=== PATIENT | female | born 1990 | race African-American/Black ===

== ENCOUNTER 2019-01-08 18:29 | Inpatient (IN) | payer MEDICAID, OTHER ==
[~2019-01-08] VITALS: Ht 157.5 cm; Wt 59.0 kg
[2019-01-08] MEDS ORDERED: SODIUM CHLORIDE 0.9% 1,000 ML IV ONE ×2 (22:13→22:56)
[2019-01-08] MEDS ORDERED: ACETAMINOPHEN 325MG TABLET PO PRN (22:15)
[2019-01-08] MEDS ORDERED: ONDANSETRON HCL 4MG/2ML INJ IV ONE ×2 (22:15→23:15)
[2019-01-08 22:34] LABS: BASOPHILS % 0.3 % (0.0-2.0); EOSINOPHILS % 0.1 % (0.0-5.0); HEMATOCRIT. 41.2 % (36.0-48.0); HEMOGLOBIN. 13.4 g/dL (12.0-16.0); MEAN CORPUSCULAR HEMOGLOBIN 24.7 pg (28.0-32.0); MEAN CORPUSCULAR VOLUME 75.8 fL (81.0-99.0); MEAN PLATELET VOLUME 8.3 fl (7.4-10.4); MONOCYTES % 7.9 % (2.0-8.0); NEUTROPHILS % 61.7 % (40.0-76.0); PLATELET 391 x1000/uL (130-400); RED BLOOD CELL COUNT 5.43 mill/uL (4.2-5.4); RED CELL DISTRIBUTION WIDTH 15.6 % (11.6-14.6)
[2019-01-08 22:35] LABS: CHLORIDE 103 mEq/L (98-107)
[2019-01-08 22:59] LABS: B-HCG QUANTITATIVE 119562 mIU/mL (<3)
[2019-01-08] MEDS ORDERED: POTASSIUM CHLORIDE 20MEQ TABLET SR PO ONE (23:00)
[2019-01-09 00:15] LABS: CLARITY URINE CLOUDY (CLEAR); COLOR URINE YELLOW (YELLOW); KETONES URINE 4+ (NEGATIVE); LEUKOCYTE ESTERASE URINE NEGATIVE (NEGATIVE); NITRITE URINE NEGATIVE (NEGATIVE); OCCULT BLOOD URINE NEGATIVE (NEGATIVE); PH URINE 5.5 (4.5-8.0); PROTEIN URINE 1+ (NEGATIVE); SPECIFIC GRAVITY URINE 1.038 (1.005-1.030)
[2019-01-09] MEDS ORDERED: ONDANSETRON HCL 4MG/2ML INJ IV ONE (00:30)
[2019-01-09] MEDS ORDERED: SODIUM CHLORIDE 0.9% 1,000 ML IV ONE (01:09)
[2019-01-09] MEDS ORDERED: KCL 10MEQ/50ML PREMIX 50 ML IV ONE (01:15)
[2019-01-09 02:58] VITALS: BP 114/79
[2019-01-09 04:00] VITALS: BP 114/79
[2019-01-09 08:00] VITALS: BP 110/70
[2019-01-09] MEDS ORDERED: FOLIC ACID 1 MG, THIAMINE HCL 100 MG, MVI, ADULT NO.1 10 ML in DEXTROSE 5% WATER 1,000 ML IV ONE ×4 (10:00)
[2019-01-09 12:00] VITALS: BP 99/56
[2019-01-09] MEDS: ONDANSETRON HCL 4MG/2ML INJ IV PRN (15:47)
[2019-01-09 16:00] VITALS: BP 94/63
[2019-01-09] MEDS ORDERED: LACTATED RINGERS 1,000 ML IV SCH (18:00)
[2019-01-09 19:10] LABS: HEPATITIS B SURFACE ANTIGEN NEGATIVE
[2019-01-09 20:00] VITALS: BP 112/76
[2019-01-09] MEDS: LACTATED RINGERS 1,000 ML IV SCH (22:42)
[2019-01-10] VITALS: BP 102/69
[2019-01-10 04:00] VITALS: BP 100/72
[2019-01-10] MEDS: ONDANSETRON HCL 4MG/2ML INJ IV PRN (06:09)
[2019-01-10 06:35] LABS: CHLORIDE 108 mEq/L (98-107)
[2019-01-10 08:00] VITALS: BP 121/71
[2019-01-10 08:49] LABS: *AMPHETAMINES SCREEN URINE NEGATIVE (NEGATIVE); OPIATES URINE SCREEN NEGATIVE (NEGATIVE); PHENCYCLIDINE URINE SCREEN NEGATIVE (NEGATIVE)
[2019-01-10 08:50] LABS: *BARBITURATES SCREEN URINE NEGATIVE (NEGATIVE); *BENZODIAZEPINES SCREEN URINE NEGATIVE (NEGATIVE); *COCAINE SCREEN URINE NEGATIVE (NEGATIVE); METHADONE URINE SCREEN NEGATIVE (NEGATIVE)
[2019-01-10 08:57] LABS: CANNABINOID URINE SCREEN PRESUMTIVE POSITIVE (NEGATIVE)
[2019-01-10] MEDS: LACTATED RINGERS 1,000 ML IV SCH ×2 (09:04→21:01)
[2019-01-10 16:06] VITALS: BP 112/66
[2019-01-10 20:00] VITALS: BP 112/70
[2019-01-11] VITALS: BP 103/61
[2019-01-11] MEDS: LACTATED RINGERS 1,000 ML IV SCH (07:30)
[2019-01-11 08:00] VITALS: BP 130/91
[2019-01-11 14:39] VITALS: BP 123/88
== END 2019-01-11 14:50 | disposition home or self-care (01) | DRG 566 ==
LOC: ER 18:29 → ENRESERV 01-09 02:11 → 6EST 01-09 03:05
PROVIDERS: ADMIT Obstetrics & Gynecology; ATTEND Obstetrics & Gynecology
DX: O21.0 Mild hyperemesis gravidarum (principal); F41.0 Panic disorder [episodic paroxysmal anxiety]; O30.001 Twin pregnancy, unspecified number of placenta and unspecified number of amniotic sacs, first trimester; O99.341 Other mental disorders complicating pregnancy, first trimester; Z3A.10 10 weeks gestation of pregnancy
CPT/HCPCS: 36415; 76830; 76856; 80305; 83735; 84702; 86592; 86762; 86850; 86900; 87340; 96361; 96374; 96375; 99285; J2405; J3411; J3480; J3490; J7030; J7040; J7070; J7120

== ENCOUNTER 2020-08-25 01:41 | Emergency (ER) | payer MEDICAID ==
[~2020-08-25] VITALS: Ht 157.5 cm; Wt 62.0 kg
[2020-08-25] MEDS ORDERED: HYDROCODONE/ACETAMINOPHEN 10/325MG TABLET PO ONE (02:00)
[2020-08-25] MEDS ORDERED: MORPHINE SULFATE 4 MG/ML CPJ (NOT FOR IM USE) IV ONE (02:00)
[2020-08-25 03:36] VITALS: BP 133/89
== END 2020-08-25 03:42 | disposition home or self-care (01) ==
LOC: ER 01:41
DX: G89.18 Other acute postprocedural pain (principal); Z98.890 Other specified postprocedural states
CPT/HCPCS: 96374; 99283; J2270